=== PATIENT | male | born 1965 | race Caucasian/White ===

== ENCOUNTER → 2019-12-13 16:43 | Outpatient (CLI) | payer BC, SELFPAY ==
--- NOTE | 2019-12-13 16:50 | RAD_ITS ---
STUDY: X-RAY - LUMBAR SPINE REASON FOR EXAM: Male, 54 years old. low back pain, bilateral leg pain TECHNIQUE: 3 view(s) of the lumbar spine were obtained. COMPARISON: None FINDINGS: Normal lumbar lordosis. There is no substantial scoliosis. There is a normal alignment of the vertebrae. There is multilevel endplate spondylosis of the lumbar vertebrae. There is multi-level degenerative disc disease with multi-level disc space narrowing. There is no demonstrated fracture. There is atherosclerotic calcification of the abdominal aorta without a demonstrated aneurysm. RAD/Lumbar Spine 2 or 3 Views IMPRESSION: Degenerative changes of the spine, as detailed above. Electronically Signed: Sergey Haywood MD at 17:12 EDT , Service support ,
== END ==
PROVIDERS: PCP Family Medicine; Referring Provider Anesthesiology Pain Medicine; Visit Provider Anesthesiology Pain Medicine
DX: M54.9 Dorsalgia, unspecified (principal)
CPT/HCPCS: 72100

== ENCOUNTER 2019-12-29 15:30 | Outpatient (RCR) | payer BC, SELFPAY ==
--- NOTE | 2019-12-24 11:31 | HP.PTEVAL ---
Patient's Visit Information JAY FISHER is a 54 year old M referred to Physical Therapy by Dr. Anjum Kneyon MD with a diagnosis of BACK PAIN AND LEG PAIN. Date of Evaluation: 12/23/19 Physical Therapist: Ashu López PT, Cert MDT, OCS - Visit Plan Frequency: 2x /Week Duration: 4 Weeks Plan: PT INTERVENTIONS DLS,POSTURAL EX'S,LUBAR FLEXION EX'S ,MODALTIES NEEDED - Subjective This 54 y/o male presents to physical therapy with back pain and leg pain. Patient has had lumbar pain with radicular symptoms 2009 no predisposing factors. Patient has had MRI showed spinal severe stenosis many years ago.Patient most recently seen recommflorinda PT anti-inflammatory. Patient has had been under pain management in [place] on gabepetin,and tramadol. Patient stated taking ant-inflammatory. Patient has seen surgeon 2011.Patient has had epidural injections in past total of 6 didnt help. Location pain burning right lower ache and parathesia left knee to foot. Aggraveting factors standing 2 min ,walking . Alleviating sitting. Bowel/bladder good-. Coughing/sneezing-. Patient symptoms affects ability to perform housework chores and ADLS, job demands. Patient symptoms affects QOL. SOCAIL: . VOCATION: [employer] - Objective POSTURE: mild foward posture. GAIT: reciprocal pattern. PALPATION : unrekarkable. NEURO: c/o parathesia/tingling left knee to foot ,intact,buring lateral tibia,reflexes L3-4,L4-5,L5-S1 1/3. SYMMRITIES: align. MMT: quads/hams/hip 4/5,ankle 5/5. LUMBAR ROM: flexion WFL,extension min loss - Special Tests L/S Slump test left side: Negative L/S Slump test right side: Negative L/S Left Straight Leg Raise: Negative L/S Right Straight Leg Raise: Negative Lumbar Standing: Flexion - Mechanical Response: No effect Lumbar Standing: Flexion - Symptoms During Testing: No effect Lumbar Standing: Flexion - Symptoms After Testing: No effect Lumbar Standing: Extension - Mechanical Response: No effect Lumbar Standing: Extension - Symptoms During Testing: No effect Lumbar Standing: Extension - Symptoms After Testing: No effect Lumbar Standing: Right Side Glides - Mechanical Response: No effect Lumbar Standing: Right Side [place] - Symptoms During Testing: No effect Lumbar Standing: Right Side [place] - Symptoms After Testing: No effect Lumbar Standing: Left Side [place] - Mechanical Response: No effect - Goals Goal 1:: Patient to be I with HEP. Goal Time Frame: 2-4 Weeks Goal 2:: Improve posture/body mechanics for ADLS' Goal Time Frame: 2-4 Weeks Goal 3:: Patient to decrease lumbar symptoms and radicular symptoms to improve function 60% of the time. Goal Time Frame: 4-6 Weeks Goal 4:: Patient be d/c to prophalaxis Goal Time Frame: 4-6 Weeks Goal 5:: Patient to improve back owestry score by 5 points or > to improve QOL. Goal Time Frame: 4-6 Weeks - Rehabilitation Potential Physical Therapy Diagnosis: Patient has h/o severe stenosis with symptoms in lumbar and leg with numbess worse with standing and lifting better with sitting ,meds ant-inflammatory help the symptoms thus benifit from skilled PT Rehabilitation Potential: Good - Anticipated Interventions Patient/Client Instruction: Educate patient on: Condition, Plan of Care For the Purpose of:: To decrease pain, To increase ROM, To improve muscle performance and motor function, To improve ability to perform ADL's, To increase tolerance to activity/condition/position, To improve ability of physical actions for home/community/work/leisure, To increase flexibility/ROM, To improve endurance, To reduce risk of recurrence, To improve ability to perform tasks related to life management Therapeutic Exercise to Include: Strength training, Postural training, Flexibilty training, Active ROM, Dynamic Lumbar Stabilization For the Purpose of:: To decrease pain, To improve muscle performance and motor function, To increase tolerance to activity/condition/position, To improve performance and independence with ADL's, To improve ability of physical actions for home/community/work/leisure, To increase flexibility/ROM, To reduce risk of recurrence, To improve ability to perform tasks related to life management TENS: Yes IF ES: Yes Cryotherapy (ice pack, ice massage): Yes Thermo therapy (hot pack): Yes Ultrasound (thermal/non thermal): Yes For the Purpose of:: To decrease pain, To improve nutrient delivery to tissue, To increase oxygenation perfusion, To improve health of tissue, To decrease soft tissue restriction Thank you for the opportunity to evaluate your patient. For Medicare and Medicare HMO plans, please review the plan of care and approve it. It will need to be FAXED BACK to us at [phone] for Medicare purposes. For Medicare only, by signing this I certify the plan of care. Please let me know if there are questions or concerns regarding this plan of care. Physician Signature: Date:
--- NOTE | 2019-12-29 16:13 | HP.PTDCSUM ---
It has been my pleasure to treat JAY FISHER referred by Dr. Anjum Kenyon MD, with the diagnosis of BACK PAIN AND LEG PAIN for a total of 2 visit(s). Discharge Date: 12/29/19 Please see the following information for a summary of their discharge status. Subjective: Doing well ,had one episodes of parathesia tingling,leg left leg buring Objective/Function: DOING WELL NO PAIN D/C TO HEP. POSTURE: WFL. GAIT: RECIPROCAL PATTERN. NEURO: INTACT. MMT: QUADS/HAMS/HIP 4/5 ,ANKLE 5/5. LUMBAR ROM: FLEXION/EXTESNION WFL Goal 1:: Patient to be I with HEP. Goal Progress: Goal Met Goal 2:: Improve posture/body mechanics for ADLS' Goal Progress: Goal Met Goal 3:: Patient to decrease lumbar symptoms and radicular symptoms to improve function 60% of the time. Goal Progress: Goal Met Goal 4:: Patient be d/c to prophalaxis Goal Progress: Goal Met Goal 5:: Patient to improve back owestry score by 5 points or > to improve QOL. Goal Progress: Goal Met Plan: D/C TO HEP Discharge Comments: HEP If there are questions or concerns regarding this patient's physical therapy, please feel free to call me at [phone]. Thank you for the referral of this patient. Sincerely, Ashu López PT, Cert MDT, OCS
== END 2019-12-29 19:00 | disposition home or self-care (01) ==
LOC: PT 15:30
PROVIDERS: PCP Family Medicine; Referring Provider Anesthesiology Pain Medicine; Visit Provider Anesthesiology Pain Medicine
DX: M54.9 Dorsalgia, unspecified (principal); M79.606 Pain in leg, unspecified
CPT/HCPCS: 97110; 97161

== ENCOUNTER → 2020-01-25 16:49 | Outpatient (CLI) | payer BC, SELFPAY ==
--- NOTE | 2020-01-25 16:54 | MRI_ITS ---
STUDY: MRI LUMBAR SPINE WITHOUT CONTRAST REASON FOR EXAM: Male, 54 years old. LOW BACK PAIN, ERASMO LEG PAIN TECHNIQUE: Standardized fat and water weighted pulse sequences were obtained in the sagittal and axial planes. COMPARISON: Lumbar spine radiograph 12/13/2019 FINDINGS: T12-L1: Normal endplates. Normal disc height, hydration and morphology. Normal bilateral facet joints. Normal central canal and bilateral lateral recesses. Normal bilateral intervertebral neural foramina. Normal lumbar lordosis. There is no substantial scoliosis. Normal conus medullaris that terminates at the L1 level. L1-2: Normal endplates. Normal disc height, hydration and morphology. Normal bilateral facet joints. Normal central canal and bilateral lateral recesses. Normal bilateral intervertebral neural foramina. L2-3: Normal endplates. Normal disc height, hydration and morphology. Normal bilateral facet joints. Normal central canal and bilateral lateral recesses. Normal bilateral intervertebral neural foramina. L3-4: Normal endplates. Normal disc height, hydration and morphology. Normal bilateral facet joints. Normal central canal and bilateral lateral recesses. Circumferential annular bulge. Moderate narrowing bilateral intervertebral neural foramina. L4-5: Disc space narrowing. Small broad-based posterior disc marginal osteophyte and circumferential bulge causing moderate to severe narrowing of the neural foramina bilaterally. Central thecal sac is patent. L5-S1: Normal endplates. Normal disc height, hydration and morphology. Normal bilateral facet joints. Normal central canal and bilateral lateral recesses. Normal bilateral intervertebral neural foramina. Normal visualized sacral ala. Normal visualized paraspinous soft tissue structures. MRI/Spine Lumbar (Routine) IMPRESSION: Moderate narrowing of the neural foramina bilaterally at L3-4 and L4-5. Electronically Signed: Ken Regan MD at 18:44 EDT , Service support ,
== END ==
PROVIDERS: PCP Family Medicine; Referring Provider Anesthesiology Pain Medicine; Visit Provider Anesthesiology Pain Medicine
DX: M54.9 Dorsalgia, unspecified (principal); M79.606 Pain in leg, unspecified
CPT/HCPCS: 72148